=== PATIENT | male | born 1965 | race Caucasian/White ===

== ENCOUNTER 2016-12-05 18:42 | Emergency (ER) | payer BC ==
[2016-12-05] MEDS ORDERED: Bacitracin Zinc 1 Packet ONE (19:11)
[2016-12-05] MEDS ORDERED: Sulfameth/Trimethoprim DS 800-160mg TAB ONE (19:15)
[2016-12-05] MEDS ORDERED: Ciprofloxacin 500 MG TAB ONE (19:15)
[2016-12-05] MEDS ORDERED: Naproxen 500 MG TAB ONE (19:30)
[2016-12-05] MEDS ORDERED: Acetaminophen/Codeine 30-300mg Tablet ONE (19:30)
== END 2016-12-05 19:31 | disposition home or self-care (01) ==
LOC: MADERS 18:42
DX: L02.212 Cutaneous abscess of back [any part, except buttock and flank] (principal); F17.210 Nicotine dependence, cigarettes, uncomplicated
CPT/HCPCS: 36415; 87070; 87077; 87186; 87205; 99283